=== PATIENT | male | born 2000 | race African-American/Black ===

== ENCOUNTER 2023-05-18 10:21 | Emergency (ER) | payer OTHER, SELFPAY ==
[2023-05-18 10:25] VITALS: BP 118/89; PULSE 64; RESP 16; TEMP 37.1; O2SAT 98; BMI 25.1
--- NOTE | 2023-05-18 15:04 | ED.GENADULT ---
HPI - General Adult General Date Seen: 05/18/23 Chief complaint: Neck Injury/Pain Stated complaint: Neck pain Time Seen by Provider: 05/18/23 10:33 History of Present Illness HPI narrative: This is a very pleasant, generally healthy 23-year-old male presenting to the ER today for pain involving the back/right side of his neck. He injured his neck while working out about 3 days ago, on . He was doing a set of pull-ups when he abruptly felt onset of pain in the back of his neck. The pain is predominantly in the right cervical paraspinous muscles about sometimes radiates down into the top of his right trapezius muscle and into his right thoracic back. Sometimes the pain is also on the left. Although nurses indicate the pain was radiating down his shoulder and arm, that is not accurate. It does go into the trapezius but not as far over as the deltoid or shoulder joint. No radiation of pain or numbness down either arm. No associated headache. No anterior neck pain. No sore throat. No fever or chills. He has been trying to manage his pain at home by taking ibuprofen, initially 400 mg per dose, subsequently 600 mg per dose, without much improvement. He notes the pain is worse when he turns his neck the wrong way or when he tries to flex his neck too far or extend. No other injury. No head injury. No fall. No associated fever. No rash. Related Data Previous Rx's Medication Instructions Recorded cyclobenzaprine 10 mg tablet 10 mg PO TID PRN muscle spasm #10 05/18/23 tabs hydrocodone 5 mg-acetaminophen 325 1 tab PO Q4-6H PRN pain #14 tabs 05/18/23 mg tablet Allergies Allergy/AdvReac Type Severity Reaction Status Date / Time No Known Drug Allergies Allergy Verified 05/18/23 10:28 [facility] Social History Smoking Status: Never smoker How often do you have a drink containing alcohol: never AUDIT-C Alcohol total score: 0 Non-prescribed substance use: denies use Exam Narrative: Exam Narrative: Constitutional: Appears well-developed and well-nourished. Alert. Conversant. Non toxic. HENT: Head: Atraumatic. Nose: Nose normal. Mouth/Throat: Oral mucosa is clear and moist. no trismus. Pharynx normal. Tonsils symmetric. No tonsillar enlargement, erythema, or exudate. Eyes: Conjunctivae normal. EOM normal. Pupils equal, round, and reactive to light. No scleral icterus. Neck: Normal range of motion, but he notices pain with forward flexion and low right lateral rotation. He is tender over the right cervical paraspinous muscles in the ridge of the right trapezius. No swelling. No real point midline tenderness and no step-off of either the cervical or the thoracic spines. No ?stiffness? or ?meningismus. ? Anterior Neck supple. No tracheal deviation present. Cardiovascular: Normal rate, regular rhythm. Symmetric radial artery pulses Pulmonary/Chest: Effort normal. No stridor. No respiratory distress. No wheezes. No rales. No rhonchi . No tenderness. Musculoskeletal: RUE: Normal range of motion. No tenderness. No deformity LUE: Normal range of motion. No tenderness. No deformity RLE: Normal range of motion. No edema. No tenderness. No deformity LLE: Normal range of motion. No edema. No tenderness. No deformity Lymph: No cervical adenopathy. Neurological: Mental status normal. Attention normal. Alert and oriented x3. GCS 15. Memory normal. Speech fluent. Cognition normal. Cranial Nerves intact II-XII except I did not formally test gag or visual acuity. EOMI. Palate elevates symmetrically and tongue protrudes in the midline. Strength: 5/5 trapezius on the right and left 5/5 deltoid on the right and left 5/5 biceps on the right and left 5/5 triceps on the right and left 5/5 network and threat support specialist on the right and left 5/5 thumb opposition on the right and left 5/5 finger abduction on the right and left 5/5 hip flexors (L3) on the right and left 5/5 quadriceps (L4) on the right and left 5/5 tibialis anterior on the right and left 5/5 EHL (L5) on the right and left 5/5 gastrocnemius (S1) on the right and left 5/5 hamstring on the right and left Sensation intact to light touch in both upper extremities (C4-T1) Sensation intact to light touch in Both lower extremities (L4-S1). Finger to nose and coordination normal. Gait normal. Skin: Skin is warm and dry. No rash noted. No pallor. Normal capillary refill. Psychiatric: Normal mood. Normal affect. Polite. Const: Vital Signs, click to edit/add: Vital Signs - 24 hr 05/18/23 10:25 Temperature 98.7 F Pulse Rate [Pulse Oximeter] 64 Respiratory Rate 16 Blood Pressure [Le ft Upper Arm] 118/89 Pulse Oximetry 98 Oxygen Delivery Me thod Room Air Course Vital Signs Vital signs: Initial Vital Signs Temperature 98.7 F 05/18/23 10:25 Temperature Source Temporal Artery Scan 05/18/23 10:25 Pulse Rate 64 05/18/23 10:25 Respiratory Rate 16 05/18/23 10:25 Blood Pressure 118/89 05/18/23 10:25 Blood Pressure Mean 98 05/18/23 10:25 Blood Pressure Position Sitting 05/18/23 10:25 Pulse Oximetry 98 05/18/23 10:25 Oxygen Delivery Method Room Air 05/18/23 10:25 Vital Signs Temperature 98.7 F 05/18/23 10:25 Pulse Rate 64 05/18/23 10:25 Respiratory Rate 16 05/18/23 10:25 Blood Pressure 118/89 05/18/23 10:25 Pulse Oximetry 98 05/18/23 10:25 Oxygen Delivery Method Room Air 05/18/23 10:25 Temperature 98.7 F 05/18/23 10:25 Pulse Rate 64 05/18/23 10:25 Respiratory Rate 16 05/18/23 10:25 Blood Pressure 118/89 05/18/23 10:25 Pulse Oximetry 98 05/18/23 10:25 Oxygen Delivery Method Room Air 05/18/23 10:25 Medical Decision Making MDM Narrative Medical decision making narrative: This patient presented with pain involving the back of his neck, predominantly involving the right cervical paraspinous muscles and right trapezius per pain. Broad differential considered. The patient did not sustain any trauma, therefore x-rays are not necessary due to the low likelihood of fracture or subluxation. No red flag symptoms to suggest CT and/or MRI is indicated at this point. The patient has not had a fever, headache or other symptoms to suggest meningitis. No associated headache would argue against associated vertebral artery dissection. Consider possible atraumatic cervical disc disease but with no symptoms of cervical radiculopathy, and normal neurologic exam, does not need emergent MRI today.. There is no clinical evidence of discitis, spinal/epidural space hematoma or epidural abscess. The neurological exam is normal and the patient's symptoms seem consistent with a musculoskeletal issues and significant muscle spasm. The patient will be discharged with pain medications to use as directed. Ice or heat to the neck and stretching exercises. No heavy lifting, bending or twisting. Return if increasing pain, numbness, weakness, or bowel or bladder dysfunction, fever, or any other concern. The patient was advised to schedule follow-up with their primary doctor within 2-3 days to re-assess symptoms. Does not currently have primary care. Recommended outpatient follow-up with [facility]. Or return to the ER if unable to arrange primary care follow-up. Note for work provided. Sedation precautions reviewed. Return precautions reviewed and questions answered. Discharge Plan Discharge Clinical Impression: Acute neck pain Patient Disposition: Home, Self-Care Condition: Stable Instructions: Acute Neck Pain (ED) Additional Instructions: As we discussed, please come back to the ER right away if you have worsening pain, numbness or weakness down your arm, bad headache, or any other concerns. Continue to use ibuprofen 600 mg every 6 hours if needed for pain. Use the additional prescription muscle relaxers and pain killers if needed for pain uncontrolled by ibuprofen. Use caution with pain killers and muscle relaxers because they can both cause drowsiness, dizziness, and can be addictive. It is okay to perform light activities but avoid strenuous physical activity, lifting more than 5 lb with her arms, or lifting objects overhead, because the sports extra strain on your neck. If your neck is not completely improve within the next 3-4 days, please follow-up with the clinic or return to the ER to be rechecked Please call the [facility] at [phone] Saturday morning to schedule an ER follow-up appointment for within the next 3-4 days. Prescriptions: New cyclobenzaprine 10 mg tablet 10 mg PO TID PRN (Reason: muscle spasm) Qty: 10 0RF hydrocodone-acetaminophen 5-325 mg tablet 1 tab PO Q4-6H PRN (Reason: pain) Qty: 14 0RF Stand Alone Forms: MyHealth Info Instructions
== END 2023-05-18 11:45 | disposition home or self-care (01) ==
LOC: ED 11:30
PROVIDERS: Emergency Provider Emergency Medicine
DX: M54.2 Cervicalgia (principal); Y93.B2 Activity, push-ups, pull-ups, sit-ups
CPT/HCPCS: 99283